=== PATIENT | female | born 1995 | race Caucasian/White ===

== ENCOUNTER 2018-11-05 23:48 | Emergency (ER) | payer BC ==
[2018-11-06] MEDS ORDERED: ONDANSETRON HCL IV 4 MG/2 ML VIAL IV ONE (00:06)
[2018-11-06] MEDS ORDERED: KETOROLAC 30 MG/ML VIAL IVP ONE (00:06)
[2018-11-06] MEDS ORDERED: 0.9 % SODIUM CHLORIDE 1,000 ML BAG IV ONE (00:06)
--- NOTE | 2018-11-06 00:14 | Emergency Department Record ---
History of Present Illness - General Chief Complaint: Abdominal Pain Stated Complaint: ABDOMINAL PAIN Time Seen by Provider: 11/06/18 00:06 Source: Patient - History of Present Illness Initial Comments: The patient [facility] am with UTI symptoms. She was started on levaquin and discharged. She was awakened out of a sleep tonight with left flank pain so came to [facility]. She is in 10/10 discomfort on arrival. MD Complaint: Flank pain - Related Data Allergies Allergy/AdvReac Type Severity Reaction Status Date / Time prednisone Allergy Intermediate HIVES Unverified 11/05/18 08:42 nitrofurantoin AdvReac nausea Unverified 11/05/18 08:42 [From Macrobid] nitrofurantoin AdvReac nausea Unverified 11/05/18 08:42 macrocrystalline [From Macrobid] Review of Systems Reviewed: No additional complaints except as noted below Constitutional: Reports: As per HPI. Denies: Chills, Fever, Malaise, Night sweats, Weakness, Weight change Eyes: Reports: As per HPI. Denies: Eye discharge, Eye pain, Photophobia, Vision change ENT: Reports: As per HPI. Denies: Congestion, Dental pain, Ear pain, Epistaxis, Hearing loss, Throat pain Respiratory: Reports: As per HPI. Denies: Cough, Dyspnea, Hemoptysis, Stridor, Wheezes Cardiovascular: Reports: As per HPI. Denies: Arrhythmia, Chest pain, Dyspnea on exertion, Edema, Murmurs, Orthopnea, Palpitations, Paroxysmal nocturnal dyspnea, Rheumatic Fever, Syncope Endocrine: Reports: As per HPI. Denies: Fatigue, Heat or cold intolerance, Polydipsia, Polyuria Gastrointestinal: Reports: As per HPI. Denies: Abdominal pain, Constipation, Diarrhea, Hematemesis, Hematochezia, Melena, Nausea, Vomiting Genitourinary: Reports: As per HPI. Denies: Abnormal menses, Discharge, Dyspareunia, Dysuria, Frequency, Hematuria, Incontinence, Retention, Urgency Musculoskeletal: Reports: As per HPI. Denies: Arthralgia, Back pain, Gout, Joint swelling, Myalgia, Neck pain Skin: Reports: As per HPI. Denies: Bruising, Change in color, Change in hair/nails, Lesions, Pruritus, Rash Neurological: Reports: As per HPI. Denies: Abnormal gait, Confusion, Headache, Numbness, Paresthesias, Seizure, Tingling, Tremors, Vertigo, Weakness Psychiatric: Reports: As per HPI. Denies: Anxiety, Auditory hallucinations, Depression, Homicidal thoughts, Suicidal thoughts, Visual hallucinations Hematological/Lymphatic: Reports: As per HPI. Denies: Anemia, Blood Clots, Easy bleeding, Easy bruising, Swollen glands Past Medical History - SOCIAL HISTORY Smoking Status: Never smoker Alcohol Use: Occasional Drug Use: None - RESPIRATORY Hx Respiratory Disorders: No - CARDIOVASCULAR Hx Cardio Disorders: No - NEURO Hx Neuro Disorders: No - GI Hx GI Disorders: No - Hx Genitourinary Disorders: No - ENDOCRINE Hx Endocrine Disorders: No - MUSCULOSKELETAL Hx Musculoskeletal Disorders: No - PSYCH Hx Psych Problems: No - HEMATOLOGY/ONCOLOGY Hx Hematology/Oncology Disorders: No Family Medical History Any Significant Family History?: No Family Hx Comment (NOT TO BE USED IN PLACE OF ITEMS BELOW): denies Physical Exam - General General Appearance: Alert, Oriented x3, Cooperative, Severe distress - Head Head exam: Normal inspection - Eye Eye exam: Normal appearance, PERRL, EOMI. negative: Conjunctival injection, Nystagmus Pupils: Normal accommodation - ENT ENT exam: Normal exam, Mucous membranes moist, Normal external ear exam, Normal orophraynx, TM's normal bilaterally Ear exam: Normal external inspection. negative: External canal tenderness Nasal Exam: Normal inspection. negative: Discharge, Sinus tenderness Mouth exam: Normal external inspection, Tongue normal Teeth exam: Normal inspection. negative: Dental caries Throat exam: Normal inspection. negative: Tonsillar erythema, Tonsillar exudate - Neck Neck exam: Normal inspection, Full ROM. negative: Lymphadenopathy, Meningismus, Tenderness - Respiratory Respiratory exam: Normal lung sounds bilaterally. negative: Respiratory distress - Cardiovascular Cardiovascular Exam: Normal rhythm, Normal heart sounds, Tachycardia - GI/Abdominal GI/Abdominal exam: Soft, Normal bowel sounds, Tenderness (mild LLQ into flank discomfort on palpation) - Rectal Rectal exam: Deferred - exam: Deferred - Extremities Extremities exam: Normal inspection, Full ROM, Normal capillary refill. negative: Calf tenderness, Pedal edema, Tenderness - Back Back exam: Reports: Normal inspection, CVA tenderness (L), Full ROM. Denies: CVA tenderness (R), Muscle spasm, Rash noted, Tenderness - Neurological Neurological exam: Alert, CN II-XII intact, Normal gait, Oriented X3, Reflexes normal. negative: Motor sensory deficit - Psychiatric Psychiatric exam: Normal affect, Normal mood - Skin Skin exam: Dry, Intact, Normal color, Warm Course Vital Signs 11/06/18 00:03 Temperature 98.5 F Pulse Rate [ 99 H Left] Respiratory 16 Rate Blood Pressure 137/87 [Left] Pulse Ox 99 - Reevaluation(s) Reevaluation #1: Patient is resting comfortably awaiting results. 11/06/18 00:59 Reevaluation #2: Reeat exam shows scant amount of discomfort over LLQ and into left lower flank sacral level. Pain level is 3/10 and tolerable to go home. 11/06/18 01:34 Medical Decision Making - Management Options MDM Management: No Additional Work-up Planned - Data Complexity MDM Data: Labs Ordered and/or Reviewed, X-Ray Ordered and/or Reviewed (Noncontrast CT shows diffuse bladder wall thickening with mild adjacent inflammation. No kidney stones or hydronephrosis. Fat containing umbilical hernia. No bowel present in hernia sac.) - Lab Data Result diagrams: 11/06/18 00:00 11/06/18 00:00 Disposition Disposition: Discharge Clinical Impression: Painful bladder spasm UTI (urinary tract infection) Qualifiers: Urinary tract infection type: acute cystitis Hematuria presence: with hematuria Qualified Code(s): N30.01 - Acute cystitis with hematuria Condition: (1) Good Additional Instructions: Continue levaquin as prescribed from Urgent Care. Take you Azo when you get home and as directed previously for the first 2 days. Push fluids. Tylenol alternated with ibuprofen as directed as needed for pain. For bladder spasm you may take the norco pills dispensed to you at discharge. Do not take norco and tylenol together as norco contains tylenol. Forms: Patient Portal Access Quality - Quality Measures Quality Measures: N/A - Blood Pressure Screening Does Patient Have Any of the Following: No Blood Pressure Classification: Pre-Hypertensive BP Reading Systolic Measurement: 137 Diastolic Measurement: 87 Screening for High Blood Pressure: < Pre-Hypertensive BP, F/U Documented > [G8950] Pre-Hypertensive Follow-up Interventions: Follow-up with rescreen every year.
[2018-11-06 00:21] LABS: ABSOLUTE NEUTROPHIL COUNT 4.47; BASO % 0.4 % (0-6); EOS % 0.9 % (0-6); GRAN % 54.4 % (47-80); HEMOGLOBIN 14.2 gm/dl (11.6-16.0); LYMPH % 35.3 % (16-45); MEAN CELL VOLUME 86.6 fl (81-97); MEAN CORPUSCULAR HEMOGLOBIN 30.7 pg (27-33); MEAN CORPUSCULAR HGB CONC 35.5 g/dl (32-36); MEAN PLATELET VOLUME 9.1 fl (7.4-10.4); PLATELET COUNT 388 K/uL (130-400); RED BLOOD COUNT 4.62 M/uL (3.80-5.40); WHITE BLOOD COUNT W/O DIFF 8.2 K/uL (4.2-12.2)
[2018-11-06 00:29] LABS: BLOOD UREA NITROGEN 12 mg/dL (6-20); CREATININE 0.8 mg/dL (0.5-0.9); EST GLOMERULAR FILTRATION RATE > 60 mL/min
[2018-11-06 00:30] LABS: LIPASE 22 U/L (13-60); TOTAL PROTEIN 7.2 g/dL (6.6-8.7)
[2018-11-06 00:32] LABS: GLUCOSE,RANDOM 100 mg/dL (74-109)
[2018-11-06 00:35] LABS: ALB/GLOB RATIO 1.5 (1.1-1.8); ALBUMIN 4.3 g/dL (4.0-5.0); ALKALINE PHOSPHATASE 65 U/L (35-104); ALT/SGPT 9 U/L (<33); AST/SGOT 13 U/L (10.0-35.0)
[2018-11-06] MEDS ORDERED: POTASSIUM CHLORIDE 20 MEQ TABLET PO ONE (01:36)
[2018-11-06] MEDS ORDERED: HYDROCODONE/APAP 5/325MG TABLET PO ONE (01:40)
--- NOTE | 2018-11-08 08:39 | CT SCAN REPORT ---
EXAM: CT OF THE ABDOMEN AND PELVIS WITHOUT CONTRAST HISTORY: THIS IS A 23-YEAR-OLD FEMALE WITH LEFT SIDED ABDOMINAL PAIN. UTI DIAGNOSED YESTERDAY. TECHNIQUE: Routine CT images of the abdomen and pelvis were obtained without contrast. Comparison: None. FINDINGS: The visualized lung sandoval are unremarkable. The gallbladder is contracted. The liver, pancreas, spleen, adrenals, and kidneys are unremarkable. The bowel is normal in caliber. No gastrointestinal inflammatory change. The appendix appears unremarkable. There is mild bladder wall thickening, correlate for cystitis. The aorta is normal in caliber. No abdominal or pelvis lymphadenopathy. No free air or significant free fluid. The abdominal wall soft tissues demonstrate a small fat containing periumbilical hernia. No acute osseous abnormality. IMPRESSION: 1. BLADDER WALL THICKENING, CORRELATE FOR CYSTITIS. 2. SMALL FAT CONTAINING PERIUMBILICAL HERNIA. JOB NUMBER: [id number] MTDD
== END 2018-11-06 01:50 | disposition home or self-care (01) ==
LOC: ER 23:48
DX: N30.01 Acute cystitis with hematuria (principal); R10.32 Left lower quadrant pain; N32.89 Other specified disorders of bladder
CPT/HCPCS: 74176; 80053; 83690; 85025; 96374; 96375; 99284; J1885; J2405; J7030

== ENCOUNTER 2019-02-04 15:36 | Emergency (ER) | payer BC ==
--- NOTE | 2019-02-04 16:16 | Emergency Department Record ---
History of Present Illness - General Chief complaint: Eye Problem Stated complaint: VISION PROBLEM Time Seen by Provider: 02/04/19 15:45 Source: Patient, Family Mode of Arrival: Ambulatory Limitations: No limitations - History of Present Illness MD chief complaint: Vision change, Other Onset/Timin -: Days(s) Location: Both eyes Place: Home If Injury: None Eye Symptoms: Other Associated Symptoms: None Treatments Prior to Arrival: None - Related Data Visual acuity (L) = 20/: 20 Visual acuity (R) = 20/: 20 With correction: No Home Medications Medication Instructions Recorded Confirmed Last Taken No Home Med [NO HOME MEDS] 02/04/19 02/04/19 Unknown Allergies Allergy/AdvReac Type Severity Reaction Status Date / Time prednisone Allergy Intermediate HIVES Verified 02/04/19 15:51 nitrofurantoin AdvReac nausea Verified 02/04/19 15:51 [From Macrobid] nitrofurantoin AdvReac nausea Verified 02/04/19 15:51 macrocrystalline [From Macrobid] Travel Screening - Travel/Exposure Within Last 30 Days Have you traveled within the last 30 days?: No Past Medical History - SOCIAL HISTORY Smoking Status: Never smoker Alcohol Use: None Drug Use: None - RESPIRATORY Hx Respiratory Disorders: No - CARDIOVASCULAR Hx Cardio Disorders: No - NEURO Hx Neuro Disorders: No - GI Hx GI Disorders: No - Hx Genitourinary Disorders: No - ENDOCRINE Hx Endocrine Disorders: No - MUSCULOSKELETAL Hx Musculoskeletal Disorders: No - PSYCH Hx Psych Problems: No - HEMATOLOGY/ONCOLOGY Hx Hematology/Oncology Disorders: No Family Medical History Any Significant Family History?: No Family Hx Comment (NOT TO BE USED IN PLACE OF ITEMS BELOW): denies Physical Exam - Eye With correction: No Course Vital Signs 02/04/19 15:47 Temperature 98.2 F Pulse Rate 95 H Respiratory 20 Rate Blood Pressure 143/93 Pulse Ox 100 Medical Decision Making - Lab Data Result diagrams: 02/04/19 16:20 02/04/19 16:20 Disposition Forms: Patient Portal Access Quality - Quality Measures Quality Measures: N/A - Blood Pressure Screening View Details: Yes Does Patient Have Any of the Following: No Blood Pressure Classification: Hypertensive Reading Systolic Measurement: 143 Diastolic Measurement: 93 Screening for High Blood Pressure: < First Hypertensive BP, F/U Documented > [G8950] First Hypertensive Follow-up Interventions: Referral to alternative/primary care provider.
--- NOTE | 2019-02-04 16:17 | Emergency Department Record ---
History of Present Illness - General Chief complaint: Eye Problem Stated complaint: VISION PROBLEM Time Seen by Provider: 02/04/19 15:45 Source: Patient Mode of Arrival: Ambulatory Limitations: No limitations - History of Present Illness Initial comments: The patient is here with Mom due to waking up this morning with visual changes to both eyes. She states since waking up she is seeing cammoflaged like patches all over her vision. She denies any WALKER, trauma, or weakness. She did see her eye doctor this afternoon and had a full exam including being dilated up for retina evaluation and was told everything was normal. Her vision prior to dilation was 20:20 in both eyes. The patient did have some nosebleeds last evening and the optomotrist felt she may need "blood work" done to have the visual changes evaluated further. The patient does have a hx of migraines but has not had any WALKER with this. chief complaint: Vision change Onset/Timin -: Days(s) Location: Both eyes Place: Home If Injury: None Eye Symptoms: Other Associated Symptoms: None Treatments Prior to Arrival: None - Related Data Visual acuity (L) = 20/: 20 Visual acuity (R) = 20/: 20 With correction: No Previous Rx's Medication Instructions Recorded Butalb/Acetaminophen/Caffeine 1 each PO QID #12 capsule 02/04/19 [[id number] 50-325-40] Allergies Allergy/AdvReac Type Severity Reaction Status Date / Time prednisone Allergy Intermediate HIVES Verified 02/04/19 15:51 nitrofurantoin AdvReac nausea Verified 02/04/19 15:51 [From Macrobid] nitrofurantoin AdvReac nausea Verified 02/04/19 15:51 macrocrystalline [From Macrobid] Travel Screening - Travel/Exposure Within Last 30 Days Have you traveled within the last 30 days?: No Review of Systems Constitutional: Denies: Chills, Fever Eyes: Denies: Eye discharge ENT: Reports: Congestion Respiratory: Denies: Cough, Dyspnea Past Medical History - SOCIAL HISTORY Smoking Status: Never smoker Alcohol Use: None Drug Use: None - RESPIRATORY Hx Respiratory Disorders: No - CARDIOVASCULAR Hx Cardio Disorders: No - NEURO Hx Neuro Disorders: No - GI Hx GI Disorders: No - Hx Genitourinary Disorders: No - ENDOCRINE Hx Endocrine Disorders: No - MUSCULOSKELETAL Hx Musculoskeletal Disorders: No - PSYCH Hx Psych Problems: No - HEMATOLOGY/ONCOLOGY Hx Hematology/Oncology Disorders: No Family Medical History Any Significant Family History?: No Family Hx Comment (NOT TO BE USED IN PLACE OF ITEMS BELOW): denies Physical Exam - General General Appearance: Alert, Oriented x3, Cooperative, No acute distress - Head Head exam: Atraumatic, Normocephalic, Normal inspection - Eye Eye exam: Normal appearance, PERRL, EOMI. negative: Conjunctival injection With correction: No - ENT Throat exam: Normal inspection. negative: Tonsillar erythema, Tonsillar exudate - Neck Neck exam: Normal inspection, Full ROM. negative: Meningismus (The neck is very supple.), Tenderness - Respiratory Respiratory exam: Normal lung sounds bilaterally. negative: Respiratory distress - Cardiovascular Cardiovascular Exam: Regular rate, Normal rhythm, Normal heart sounds - GI/Abdominal GI/Abdominal exam: Soft, Normal bowel sounds. negative: Tenderness - Extremities Extremities exam: Normal inspection, Full ROM, Normal capillary refill. negative: Tenderness - Neurological Neurological exam: Alert, Normal gait, Oriented X3, Other (Neg Drift and Rhomberg exams.). negative: Abnormal gait, Altered, Motor sensory deficit - Skin Skin exam: negative: Rash Course Vital Signs 02/04/19 15:47 Temperature 98.2 F Pulse Rate 95 H Respiratory 20 Rate Blood Pressure 143/93 Pulse Ox 100 - Reevaluation(s) Reevaluation #1: The patient presently has a normal neuro exam and is able to see well and text on her phone. Her visual acuity was 20:20 in both eyes at the eye doctors office. I did consult with Dr. Del Cid who is our Opthomologist and he did recommend a head CT which we will do. I did discuss the issues with him and he also believes as does the Optomotrist that the patient most likely has a migraine variant as the cause of the visual changes. 02/04/19 17:40 Reevaluation #2: The patient's symptoms have been stable since waking up today. She clearly has no focal deficits on exam. I did discuss the neg head CT with the patient and the need for F/U on Thursday. She is to return to the ER for any worsening symptoms. 02/04/19 18:12 Medical Decision Making - Data Complexity MDM Data: Labs Ordered and/or Reviewed, X-Ray Ordered and/or Reviewed - Lab Data Result diagrams: 02/04/19 16:20 02/04/19 16:20 - Radiology Data Radiology results: Report reviewed (Head CT: Neg) Disposition Disposition: Discharge Clinical Impression: Visual changes Disposition: Home, Self-Care Condition: (2) Stable Instructions: Blurred Vision (ED) Additional Instructions: Please see your Family doctor or Eye doctor on Thursday for recheck and to have your WBC rechecked. Please return to the ER for any worsening symptoms or new problems. Prescriptions: Butalb/Acetaminophen/Caffeine [[id number] 50-325-40] 1 each PO QID #12 capsule Forms: Patient Portal Access Time of Disposition: 18:10 Quality - Quality Measures Quality Measures: N/A - Blood Pressure Screening View Details: Yes Does Patient Have Any of the Following: No Blood Pressure Classification: Hypertensive Reading Systolic Measurement: 143 Diastolic Measurement: 93 Screening for High Blood Pressure: < First Hypertensive BP, F/U Documented > [G8950] First Hypertensive Follow-up Interventions: Referral to alternative/primary care provider.
[2019-02-04 16:27] LABS: ABSOLUTE NEUTROPHIL COUNT 1.09; BASO % 0.5 % (0-6); EOS % 0.5 % (0-6); HEMATOCRIT 40.2 % (35.0-47.0); HEMOGLOBIN 13.8 gm/dl (11.6-16.0); LYMPH % 38.7 % (16-45); MEAN CORPUSCULAR HEMOGLOBIN 30.2 pg (27-33); MEAN CORPUSCULAR HGB CONC 34.3 g/dl (32-36); MEAN PLATELET VOLUME 8.5 fl (7.4-10.4); MONO % 11.3 % (0-9); PLATELET COUNT 282 K/uL (130-400); RED BLOOD COUNT 4.57 M/uL (3.80-5.40); RED CELL DISTRIBUTION WIDTH 12.4 % (11.5-14.5); WHITE BLOOD COUNT W/O DIFF 2.2 K/uL (4.2-12.2)
[2019-02-04 16:40] LABS: BLOOD UREA NITROGEN 8 mg/dL (6-20); CREATININE 0.8 mg/dL (0.5-0.9); EST GLOMERULAR FILTRATION RATE > 60 mL/min
[2019-02-04 16:43] LABS: GLUCOSE,RANDOM 120 mg/dL (74-109)
[2019-02-04 16:45] LABS: ALT/SGPT 11 U/L (<33); AST/SGOT 17 U/L (10.0-35.0)
[2019-02-04 16:46] LABS: ALB/GLOB RATIO 1.3 (1.1-1.8); ALBUMIN 3.9 g/dL (4.0-5.0); ALKALINE PHOSPHATASE 55 U/L (35-104); C-REACTIVE PROTEIN 1.41 mg/dL (<0.5)
--- NOTE | 2019-02-04 17:58 | CT SCAN REPORT ---
EXAMINATION: CT Head without IV Contrast EXAM DATE: 02/04/2019 5:39 PM TECHNIQUE: Standard protocol CT images of the head were obtained without intravenous contrast. Salazar l and sagittal reconstructed images were created. INDICATION: visual changes bilaterally COMPARISON: None HAND DOMINANCE: Unknown. ENCOUNTER: Not applicable FINDINGS: 1. There are no focal areas of abnormal brain attenuation. No acute intracranial hemorrhage is noted . 2. The ventricles, sulci, and the cisterns are normal in size and in morphology. No mass effect, mid line shift nor extra-axial fluid collections are noted. 3. No skull abnormalities are noted. 4. The paranasal sinuses are well aerated. The mastoid air cells are well aerated. IMPRESSION: Normal CT scan of the head. Dictated by: Mateus Willams MD on 02/04/2019 5:53 PM. .
== END 2019-02-04 18:31 | disposition home or self-care (01) ==
LOC: ER 15:36
DX: H53.8 Other visual disturbances (principal)
CPT/HCPCS: 70450; 80053; 84703; 85025; 86140; 99284